=== PATIENT | male | born 1970 | race Caucasian/White ===

== ENCOUNTER → 2017-07-29 | Outpatient (CLI) | payer OTHER ==
[~2017-07-29] MED LIST: HYDROCHLOROTH12.5 M2 PO; LISINOPRIL20 MG PO
--- NOTE | 2017-08-11 15:15 | SLEEP ---
[address] [address] SLEEP STUDY REPORT Name: JAIME WILSON Room: [facility] BON[facility]ACIO [place]#: [id number] Admission: 07/29/17 Attend Phys: Shankar Padilla DO Discharge: Date of : 68 Report #: [id number] THIS REPORT FOR: //name// CC: Shankar Padilla DO This study has been reviewed in its entirety by a board certified sleep specialist A 47-year-old male with loud snoring and restless sleep. Home sleep test was advised. Home sleep test was carried out by the [facility] system. Total recording time was 6 hours and 40 minutes. The patient had 40 obstructive apneas. He had 109 hypopneas. Apnea-hypopnea index was elevated at 23.2 events per hour. He had moderate O2 desaturation with 21% of time in bed. O2 sats were less than 90%. The patient had moderately loud snoring and loud duration of snoring at 25.6%. IMPRESSION: Home sleep test consistent with moderate to moderately severe obstructive sleep apnea, moderate O2 desaturation is noted. Lowest O2 sat was 67% during sleep. Suggest empiric CPAP trial at 12 cm of CPAP with a full facemask and supplemental oxygen at 2 liters nasal cannula bled into system. He needs a data download in 1 month and then follow up from that. If he continues to have issues, then a full in-house sleep study with split night somnography and CPAP titration may be indicated. <ELECTRONICALLY SIGNED> By: Peterson Villafuerte MD 08/11/17 1515 1035 [id number] Villafuerte MD /nt
== END ==
LOC: M.SLEEPLAB 08:55
DX: G47.33 Obstructive sleep apnea (adult) (pediatric) (principal); I10 Essential (primary) hypertension; E78.5 Hyperlipidemia, unspecified

== ENCOUNTER 2018-05-18 19:40 | Inpatient (IN) | payer OTHER ==
[~2018-05-18] VITALS: Ht 185.4 cm; Wt 191.9 kg
[2018-05-18] MEDS ORDERED: LISINOPRIL20 MG PO (19:52)
[2018-05-18] MEDS ORDERED: HYDROCHLOROTH12.5 M2 PO (19:53)
[2018-05-18 19:55] VITALS: BP 174/107
[2018-05-18 19:57] LABS: URINE BILIRUBIN NEGATIVE (Negative); URINE BLOOD NEGATIVE (Negative); URINE CLARITY CLEAR; URINE COLOR YELLOW; URINE GLUCOSE-RANDOM NEGATIVE (Negative); URINE KETONES NEGATIVE (Negative); URINE LEUKOCYTES NEGATIVE (Negative); URINE NITRITE NEGATIVE (Negative); URINE PROTEIN NEGATIVE (Negative); URINE SPECIFIC GRAVITY 1.025 (1.005-1.030); URINE UROBILINOGEN 0.2 E.U./dl (0.2-1.0)
[2018-05-18 20:21] LABS: ABSOLUTE BASOPHILS 0.1 thou/uL (0.0-0.2); ABSOLUTE EOSINOPHILS 0.2 thou/uL (0.0-0.7); ABSOLUTE LYMPHOCYTES 2.6 thou/uL (0.8-5.3); ABSOLUTE MONOCYTES 0.8 thou/uL (0.0-1.2); ABSOLUTE NEUTROPHILS 5.2 thou/uL (1.6-8.1); BASOPHILS 0.8 %; EOSINOPHILS 1.9 %; HEMATOCRIT 39.4 % (42.0-52.0); HEMOGLOBIN 13.2 gm/dL (14.0-18.0); MCH 30.4 pg (26.0-34.0); MCHC 33.6 g/dL (28.0-37.0); MCV 90.4 fL (80.0-100.0); MONOCYTES 8.5 %; MPV 7.1 fl. (7.2-11.1); NUCLEATED RBCS 0 /100WBC; PLATELET COUNT* 538 thou/uL (150-400); POLYS 58.8 %; RBC 4.36 mil/uL (4.50-6.00); RDW-CV 15.4 % (10.5-14.5); WBC 8.8 thou/uL (4.0-11.0)
[2018-05-18 20:27] LABS: CALCIUM 8.9 mg/dL (8.5-10.1); CREATININE 0.9 mg/dL (0.6-1.3); POTASSIUM 4.1 mmol/L (3.5-5.1)
[2018-05-18 20:31] LABS: ALBUMIN 3.1 g/dL (3.4-5.0); TOTAL BILIRUBIN 0.2 mg/dL (<0.1-1.0); TOTAL PROTEIN 7.3 g/dL (6.4-8.2)
[2018-05-18 23:10] VITALS: BP 144/73
[2018-05-19 08:35] VITALS: BP 142/81
[2018-05-19 14:51] LABS: PHOSPHORUS* 3.9 mg/dL (2.5-4.9); URIC ACID* 4.5 mg/dL (2.6-7.2)
[2018-05-19 16:00] VITALS: BP 146/67
[2018-05-19 20:00] VITALS: BP 124/74
[2018-05-20 02:06] LABS: HEPATITIS B SURFACE AG Negative (Negative)
[2018-05-20 04:12] LABS: ABSOLUTE BASOPHILS 0.1 thou/uL (0.0-0.2); ABSOLUTE EOSINOPHILS 0.2 thou/uL (0.0-0.7); ABSOLUTE LYMPHOCYTES 3.2 thou/uL (0.8-5.3); ABSOLUTE MONOCYTES 0.7 thou/uL (0.0-1.2); ABSOLUTE NEUTROPHILS 4.5 thou/uL (1.6-8.1); BASOPHILS 0.8 %; EOSINOPHILS 2.5 %; HEMATOCRIT 39.2 % (42.0-52.0); HEMOGLOBIN 13.2 gm/dL (14.0-18.0); LYMPHOCYTES 36.6 %; MCH 30.7 pg (26.0-34.0); MCHC 33.7 g/dL (28.0-37.0); MCV 91.2 fL (80.0-100.0); MONOCYTES 7.8 %; MPV 7.3 fl. (7.2-11.1); NUCLEATED RBCS 0 /100WBC; PLATELET COUNT* 464 thou/uL (150-400); POLYS 52.3 %; RBC 4.29 mil/uL (4.50-6.00); RDW-CV 15.4 % (10.5-14.5); WBC 8.6 thou/uL (4.0-11.0)
[2018-05-20 04:24] LABS: CALCIUM 9.1 mg/dL (8.5-10.1); CREATININE 0.9 mg/dL (0.6-1.3); POTASSIUM 5.2 mmol/L (3.5-5.1)
[2018-05-20 08:00] VITALS: BP 149/94
--- NOTE | 2018-05-20 10:14 | EKG ---
[place] [address] ELECTROCARDIOGRAM REPORT Name: JAIME WILSON BK Room: [address] ADM IN .R.#: [id number] Admission: 05/18/18 Attend Phys: Cira Wheeler MD Discharge: Date of : 68 Report #: [id number] THIS REPORT FOR: //name// [facility] ED Test Date: 2018-05-18 Test Time: 20:23:39 Pat Name: JAIME ARMANDOROBERT Department: Room: [facility] Gender: M [employer]ire Serv[employer]: : 1970 Requested By: Sherin Ovalle Order Number: [id number] MD: Brien Bryant Measurements Intervals [place] Rate: 66 P: 73 [place]: 180 QRS: 43 QRSD: 118 T: 25 QT: 402 QTc: 422 Interpretive Statements Sinus rhythm Nonspecific intraventricular conduction delay No previous ECG available for comparison Electronically Signed On 05-20-2018 10:14:37 [employer] by Brien Bryant [email or web address] <ELECTRONICALLY SIGNED> By: Brien Bryant MD, [facility] 05/20/18 1014 22 22 Brien Bryant MD, FACC /EPI
[2018-05-20 15:43] VITALS: BP 138/82
[2018-05-21] VITALS (13 sets, daily range): BP systolic 118–154; BP diastolic 52–85
[2018-05-21 03:59] LABS: ABSOLUTE BASOPHILS 0.1 thou/uL (0.0-0.2); ABSOLUTE EOSINOPHILS 0.2 thou/uL (0.0-0.7); ABSOLUTE LYMPHOCYTES 2.7 thou/uL (0.8-5.3); ABSOLUTE MONOCYTES 0.5 thou/uL (0.0-1.2); ABSOLUTE NEUTROPHILS 4.6 thou/uL (1.6-8.1); BASOPHILS 0.7 %; EOSINOPHILS 2.5 %; HEMATOCRIT 40.8 % (42.0-52.0); HEMOGLOBIN 13.8 gm/dL (14.0-18.0); LYMPHOCYTES 33.6 %; MCH 30.7 pg (26.0-34.0); MCHC 33.8 g/dL (28.0-37.0); MONOCYTES 6.5 %; MPV 7.2 fl. (7.2-11.1); NUCLEATED RBCS 0 /100WBC; PLATELET COUNT* 514 thou/uL (150-400); POLYS 56.7 %; RBC 4.49 mil/uL (4.50-6.00); RDW-CV 15.4 % (10.5-14.5); WBC 8.2 thou/uL (4.0-11.0)
[2018-05-21 04:00] LABS: CALCIUM 8.7 mg/dL (8.5-10.1); CREATININE 0.9 mg/dL (0.6-1.3); POTASSIUM 4.1 mmol/L (3.5-5.1)
[2018-05-22] VITALS: BP 141/85
[2018-05-22 07:30] VITALS: BP 141/89
--- NOTE | 2018-05-22 09:45 | CON ---
[address] [address] CONSULTATION Name: JAIME WILSON BK Room: [address] IN ..#: [id number] Admission: 05/18/18 Attend Phys: Cira Wheeler MD Discharge: Date of : 68 Report #: [id number] THIS REPORT FOR: //name// CC: Shankar Wheeler DATE OF SERVICE: 05/20/2018 REASON FOR CONSULTATION: Bulky abdominal lymphadenopathy. HISTORY OF PRESENT ILLNESS: A 48-year-old male who has been relatively healthy. He presented because of abdominal pain that started for the last few weeks. He denies any nausea, vomiting or diarrhea or any fever, chills or night sweats. The patient thought he has been having hernia issue. However, a CT scan of the abdomen with contrast showed bulky peritoneal peripancreatic lymphadenopathy present in the gastrohepatic ligament, the largest measuring around 8 cm. Several small retroperitoneal lymph nodes also present. There are multiple peritoneal masses scattered all over the 4 quadrants, measuring 3.5 cm. There are borderline bilateral iliac inguinal lymph nodes also. 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 The patient was seen today. He reported that his pain has improved significantly. He did not have any previous colonoscopy or previous history of prostate cancer. REVIEW OF SYSTEMS: All systems were reviewed; it was negative, except the above. PAST MEDICAL HISTORY: Hypertension. PAST SURGICAL HISTORY: Multiple hernia repairs. ALLERGIES: No known allergies. MEDICATIONS: Per admission list. SOCIAL HISTORY: He is a smoker of one pack per day. He denies any alcohol abuse or drug abuse. FAMILY HISTORY: Noncontributory. PHYSICAL EXAMINATION: VITAL SIGNS: Today, temperature 36.8, pulse 60, respirations 18, blood pressure was 124/74 and SpO2 was 95% on room air. GENERAL: The patient was sitting in chair, was not in acute distress. LUNGS: Clear to auscultation bilaterally. HEART: Regular rate and rhythm. S1, S2 within normal limits. LYMPHATICS: No evidence of axillary [place] [address] CONSULTATION Name: JAIME WILSON BK Room: [address] IN [facility]#: [id number] Admission: 05/18/18 Attend Phys: Cira Wheeler MD Discharge: Date of : 68 Report #: [id number] EXTREMITIES: No edema, no cyanosis and no clubbing. LABORATORY DATA: Labs today, WBC 8.6, hemoglobin 13.2 and platelets 464,000. Potassium 5.2, creatinine 0.9. Uric acid 4.5. Bilirubin 0.2. LDH is 140. I obtained a hepatitis profile, which came back negative. IMAGING: As mentioned above. In addition to that, CT of the chest showed no evidence of lymphadenopathy. ASSESSMENT AND PLAN: A 48-year-old male with a past medical history of hypertension, presented because of abdominal pain. CT scan showed extensive lymphadenopathy and retroperitoneal masses. Other than abdominal pain, he does not have any B symptoms. His primary differential diagnosis will be lymphoma. However, his LDH and uric acid are within normal range. RECOMMENDATIONS: I requested Interventional Radiology for biopsy. If not feasible, the next step will be consulting General Surgery for excisional biopsy. I prefer the abdominal lymphadenopathy rather than the inguinal since they are borderline enlarged. We will follow up with the patient with the results of the pathology after discharge. <ELECTRONICALLY SIGNED> By: Odalys Neely MD 05/22/18 0945 0929 [id number] Neely MD /nt
--- NOTE | 2018-05-28 10:06 | PATH ---
[address] [address] PATHOLOGY RPT PROCEDURE Name: JAIME LOZANO BK Room: [address] IN .R.#: [id number] Admission: 05/18/18 Date of : 68 Discharge: 05/22/18 Report #: [id number] Path Case #: [id number] [facility] Accession Number: [id number] . 01 Material submitted: . ABDOMINAL MASS . 01 Clinical history: . Mass 3.0 x 3.4 x 3.5 cm posterior, inferior to liver . 02 Diagnosis: Please see included [facility] report [id number]. . "Abdominal mass", image-guided needle biopsy: - Consistent with splenic parenchyma (see comment). (BONIFACIOW:khurram; 05/24/2018) [place]/05/24/2018 . 02 Comment: Sections show needle core biopsy fragments of tissue that is histologically compatible with splenic tissue. Both red pulp and white pulp are identified. A properly controlled special stain is performed. . Reticulin (block A2)-highlights intact splenic reticulin network. . Flow cytometric immunophenotypic analysis was performed at [facility]. The diagnosis is "no significant lymphoid immunophenotypic abnormalities detected." There are 54% lymphocytes. Of the lymphocytes, there are 13.1% B cells that are polytypic. T cells have a CD4/CD8 ratio of 3.5 and no aberrant T cell antigen expression. Please see separate flow cytometry report from [facility] ([id number]). . 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 If the splenectomy was due to trauma, posttraumatic splenosis may be present. Clinical and radiographic correlation is required. The previously recommended nuclear medicine liver spleen scan may provide additional information, if clinically indicated. The case is co-reviewed with Dr. Gregory Winchester. The case is discussed with Dr. Cira Wheeler on 05/24/18 at 1:45 PM. . (CLW:khurram; 05/24/2018) . 02 Electronically signed: . Tabitha Jordan MD, Pathologist NPI- [id number] . 01 Gross description: . The specimen is received in formalin, labeled "Daysi Lozano, [place] [id number] PATHOLOGY RPT PROCEDURE Name: JAIME LOZANO BK Room: [address] IN .R.#: [id number] Admission: 05/18/18 Date of : 68 Discharge: 05/22/18 Report #: [id number] Path Case #: [id number] mass". Received are three needle cores of dark red soft tissue ranging in length from 0.7 to 0.9 cm, with each measuring 0.1 cm in diameter. The specimen is submitted entirely in cassettes A1 through A3. A portion of the specimen is received in RPMI solution and is forwarded on for flow cytometry studies. (CAA; 05/22/2018) QAC/QAC . 02 Microscopic: . Special studies report received from [facility], [address] [place] [address], [address], [place], [address], on case [id number], labeled with their number [id number], dated 05/23/2018. . Flow Cytometry: Hematologic Neoplasia Assessment . Clinical History Abdominal mass, posterior-inferior to liver . Indication for Study Evaluation for hematolymphoid neoplasia . Specimen Tissue, Abdomen . Viability 84% (7AAD exclusion) . Interpretation Tissue, Abdomen: No significant lymphoid immunophenotypic abnormalities detected . Comments Hodgkin lymphoma, some large cell lymphomas and some peripheral T-cell lymphomas cannot be categorically excluded by flow cytometric analysis. Correlation with the morphologic findings is recommended. . Populations Analyzed Lymphocytes: 54% B-cells: 13.1%, polytypic/polyclonal sIg light chain pattern T-cells: no significant abnormalities of the markers tested CD4:CD8: 3.5 NK cells: 10.1% Granulocytes: 19% Present Monocytes/ 3% Present Histiocytes: CD45 Negative 24% No significant reactivity with the markers tested Events/Debris: (may represent non-hematolymphoid cells, degenerated cells, debris, unlysed red blood cells, etc.) [place] [address] PATHOLOGY RPT PROCEDURE Name: JAIME LOZANO BK Room: [address] DIS IN [place]#: [id number] Admission: 05/18/18 Date of : 68 Discharge: 05/22/18 Report #: [id number] Path Case #: [id number] . Morphologic Evaluation A slide was reviewed for compliance quality performance analyst purposes only. . Specimen Description Total Cell Yield: 0.77 X 10 6 . Reagent(s) Used CD2, CD3, CD4, CD5, CD7, CD8, CD10, CD11b, CD19, CD20, CD23, CD30, CD38, CD43, CD45, CD56, CD57, FMC-7, HLA-DR, kappa, lambda . at [facility], [employer]. Mac Rizzo MD Hematopathologist . Intended Use Flow cytometry is optimally used to immunophenotypically characterize abnormal populations when they are detected. Negative flow cytometry results do not exclude lymphoma or neoplasia. Possible false negative flow cytometry results may occur in, but are not limited to, the following: neoplastic cells in Hodgkin lymphoma are not typically adequately represented by routine clinical flow cytometry; neoplastic cells may be lost or inadequately represented due to degeneration, sample processing, sampling artifact, or patchy involvement; plasma cells are typically underrepresented by flow cytometry; immature cells/blasts may be underrepresented due to hemodilution; myeloproliferative disorders and low grade myelodysplasia may not have immunophenotypic abnormalities or increased blasts. Correlation with all available clinical, laboratory, and morphologic data is always necessary to assess for the possibility of false negative flow cytometry results and to establish a diagnosis. Each marker in this analysis was used to assess for potential antigenic abnormalities or to evaluate detected abnormalities. . Disclaimer(s) This test was performed at [facility] at [address], [address] - Organization Development Consultant: Gary Aguilar MD. [facility] is a business unit of [facility], [employer] a wholly-owned subsidiary of [employer]. . Any image or images that accompany this report are retail account representative images only and should not be used to render a diagnosis. . This test was developed and its performance characteristics determined by [facility]. It has not been cleared or approved by the Food and Drug Administration (FDA). The FDA has determined that such clearance [place] [address] PATHOLOGY RPT PROCEDURE Name: JAIME LOZANO BK Room: [address] IN ..#: [id number] Admission: 05/18/18 Date of : 68 Discharge: 05/22/18 Report #: [id number] Path Case #: [id number] . For inquiries, the physician may contact Lab: [phone] . A complete copy of the report is on file. . Professional services performed by [facility] at [address], [place] [address]. Technical services performed by [facility] at [address], [place] [address]. . (AMJ 05/23/2018) . . 02 Pathologist provided ICD-10: R19.00, R10.9, D64.9 . 02 CPT . 574859, 197981 Specimen Comment: A courtesy copy of this report has been sent to Specimen Comment: [phone]. Specimen Comment: Report sent to / DR NERI Specimen Comment: A duplicate report has been generated due to demographic updates. Performed at: [id number] [facility] [address], [place] [id number] MD Tao Carrasco MD Phone: [phone] Performed at: 02 [facility] [address], [place], [place] [id number] MD Gregory Winchester MD Phone: [phone]
== END 2018-05-22 10:38 | disposition home or self-care (01) | DRG 394 ==
LOC: M.ERS 19:40 → M.3W 22:25 → M.TBA-ER 22:25 → M.3W 23:10
PROVIDERS: Internal Medicine; Physician Assistant; ADMIT Family Medicine
PROC: 0DBW3ZX Excision of Peritoneum, Percutaneous Approach, Diagnostic (ICD-10-PCS; principal; 2018-05-18)
DX: K66.9 Disorder of peritoneum, unspecified (principal); Z68.43 Body mass index [BMI] 50.0-59.9, adult; I10 Essential (primary) hypertension; K21.9 Gastro-esophageal reflux disease without esophagitis; E66.01 Morbid (severe) obesity due to excess calories; R59.1 Generalized enlarged lymph nodes; D64.9 Anemia, unspecified; F17.210 Nicotine dependence, cigarettes, uncomplicated; Z79.899 Other long term (current) drug therapy

== ENCOUNTER → 2018-05-29 | Outpatient (CLI) | payer OTHER ==
--- NOTE | ~2018-05-29 | HEMONC ---
[address] [address] HEMATOLOGY ONCOLOGY NOTE Name: JAIME WILSON BK Room: [facility] BONIFACIO ShawnaJustin#: [id number] Admission: 05/29/18 Attend Phys: Odalys Neely MD Discharge: Date of : 68 Report #: [id number] THIS REPORT FOR: //name// CC: Shankar Neely REASON FOR CONSULTATION: Abdominal masses, retroperitoneal and lymphadenopathy. SUBJECTIVE: The patient presented today to discuss his biopsy of the mass inferior to the liver and lateral to the right kidney. The pathology came back as splenic parenchyma. The patient had a previous emergent splenectomy with a perforated bowel. This could present a case of splenosis and we are planning for nuclear medicine liver and spleen scan to evaluate that. However, the patient had in addition to those masses bulky lymphadenopathy in the periportal peripancreatic present and primarily in the gastrohepatic ligament, the largest was around 8 cm. In addition to that, the patient has been having recent abdominal pain that triggered his hospital admission. REVIEW OF SYSTEMS: All systems were reviewed and it was negative except the above. PAST MEDICAL, SOCIAL AND FAMILY HISTORY: As mentioned above. PHYSICAL EXAMINATION: VITAL SIGNS: Today, blood pressure is 124/78, pulse 73, respirations 20, temperature is 97.7 and saturations 97%. GENERAL: The patient was sitting in chair, was not in acute distress. He is awake, alert, oriented x 3. Cranial nerves are grossly intact. ASSESSMENT AND PLAN: A 48-year-old male who has been evaluated because of multiple retroperitoneal abdominal masses and bulky lymphadenopathy. Biopsy of one of the masses came back as spleen tissue, which is more consistent with his previous trauma and splenectomy; however, I would like to obtain a nuclear medicine liver and spleen scan to evaluate that. In addition to this, I discussed with Dr. Swanson, Interventional Radiology, to biopsy the bulky lymphadenopathy to make sure there is no lymphoma associated with it since the patient has been having a new onset of abdominal pain on the right upper quadrant. Follow up based on the biopsy. By: 0928 [id number] Neely MD /johann
== END ==
LOC: M.RTH 03:12
DX: R19.07 Generalized intra-abdominal and pelvic swelling, mass and lump (principal); R59.1 Generalized enlarged lymph nodes